=== PATIENT | female | born 1990 | race Caucasian/White ===

== ENCOUNTER 2019-11-23 20:04 | Emergency (ER) | payer MEDICAID ==
[~2019-11-23] VITALS: Ht 165.1 cm; Wt 61.0 kg
[2019-11-23 20:14] VITALS: BP 169/120
== END 2019-11-24 00:21 | disposition home or self-care (01) ==
LOC: ER 20:05
DX: S60.450A Superficial foreign body of right index finger, initial encounter (principal); W22.8XXA Striking against or struck by other objects, initial encounter; Y93.89 Activity, other specified; Y92.89 Other specified places as the place of occurrence of the external cause; Y99.8 Other external cause status
CPT/HCPCS: 10120; 99285

== ENCOUNTER 2020-01-28 15:25 | Emergency (ER) | payer MEDICAID ==
[~2020-01-28] VITALS: Ht 165.1 cm; Wt 63.0 kg
[2020-01-28] MEDS ORDERED: ondansetron 4mg rapidly disintigrating tab PO ONE (16:35)
[2020-01-28] MEDS ORDERED: HYDROcodone/acetaminophen 5mg/325mg tablet PO ONE (16:35)
[2020-01-28] MEDS ORDERED: HYDR-4383 PO (16:42)
[2020-01-28] MEDS ORDERED: ONDA4TAB6 PO (16:42)
[2020-01-28 17:01] VITALS: BP 162/116
== END 2020-01-28 16:55 | disposition home or self-care (01) ==
LOC: ER 15:25
DX: S92.511A Displaced fracture of proximal phalanx of right lesser toe(s), initial encounter for closed fracture (principal); F12.90 Cannabis use, unspecified, uncomplicated; Z79.899 Other long term (current) drug therapy; W22.8XXA Striking against or struck by other objects, initial encounter; Y93.89 Activity, other specified; Y92.89 Other specified places as the place of occurrence of the external cause; Y99.8 Other external cause status
CPT/HCPCS: 29130; 73660; 99283

== ENCOUNTER 2021-09-15 23:07 | Emergency (ER) | payer MEDICAID ==
[~2021-09-15] VITALS: Ht 165.1 cm; Wt 61.0 kg
[~2021-09-15 23:07] MED LIST: HYDR-4383 PO; ONDA4TAB6 PO
[2021-09-15 23:12] VITALS: BP 183/118
[2021-09-15] MEDS ORDERED: proparacaine 0.5% ophthalmic drops 15ml EACHEYE ONE (23:45)
[2021-09-16] MEDS ORDERED: erythromycin ophthalmic ointment 1gm tube EACHEYE ONE (00:10)
[2021-09-16] MEDS ORDERED: acetaminophen 325mg tablet PO ONE (00:10)
[2021-09-16] MEDS ORDERED: ibuprofen tablet 400 MG TABLET PO ONE (00:10)
[2021-09-16] MEDS ORDERED: SULF1TAB48 PO (00:13)
[2021-09-16] MEDS ORDERED: CEFD300C3 PO (00:13)
[2021-09-16] MEDS ORDERED: sulfamethoxazole/trimethoprim DS (800/160mg) tablet PO ONE (00:15)
== END 2021-09-16 00:45 | disposition home or self-care (01) ==
LOC: ER 23:08
DX: S05.02XA Injury of conjunctiva and corneal abrasion without foreign body, left eye, initial encounter (principal); X58.XXXA Exposure to other specified factors, initial encounter; Y93.89 Activity, other specified; Y92.89 Other specified places as the place of occurrence of the external cause; Y99.8 Other external cause status
CPT/HCPCS: 99284

== ENCOUNTER 2021-12-31 11:31 | Emergency (ER) | payer MEDICAID ==
[~2021-12-31] VITALS: Ht 165.1 cm; Wt 65.9 kg
[2021-12-31] MEDS ORDERED: ketorolac trometh. 30mg/ml inj. IM ONE (14:35)
[2021-12-31] MEDS ORDERED: TETanus/Pertussis (Acell)/Diphther VAC/PF (Tdap-Adult) 0.5ml syringe IMVAC ONE (15:30)
[2021-12-31] MEDS ORDERED: LIDOcaine 1% W/epiNEPHrine 1:200,000 10ml vial IJ ONE (15:30)
[2021-12-31] MEDS ORDERED: LIDOCAINE 2% w/EPI 1:100:000 30mL injection MDV**cath lab 1 only SQ ONE (15:35)
[2021-12-31] MEDS ORDERED: CEPH-585 PO (16:39)
[2021-12-31] MEDS ORDERED: IBUP-1986 PO (16:39)
[2021-12-31] MEDS ORDERED: cephalexin 250mg capsule PO ONE (16:40)
[2021-12-31 16:56] VITALS: BP 150/106
== END 2021-12-31 16:57 | disposition home or self-care (01) ==
LOC: ER 11:31
DX: L02.511 Cutaneous abscess of right hand (principal); L03.011 Cellulitis of right finger; F17.200 Nicotine dependence, unspecified, uncomplicated; F12.90 Cannabis use, unspecified, uncomplicated; Z79.2 Long term (current) use of antibiotics; Z79.899 Other long term (current) drug therapy
CPT/HCPCS: 26010; 73140; 87070; 87077; 87186; 93005; 96372; 99285; J1885; 90715; 99283

== ENCOUNTER 2022-01-02 14:46 | Emergency (ER) | payer MEDICAID ==
[~2022-01-02] VITALS: Ht 167.6 cm; Wt 70.0 kg
[~2022-01-02 14:46] MED LIST changes: +CEPH-585 PO; +IBUP-1986 PO
[2022-01-02 14:56] VITALS: BP 203/142
== END 2022-01-02 20:24 | disposition left against medical advice (07) ==
LOC: ER 14:46
DX: Z48.00 Encounter for change or removal of nonsurgical wound dressing (principal); Z53.21 Procedure and treatment not carried out due to patient leaving prior to being seen by health care provider

== ENCOUNTER 2022-05-06 08:01 | Emergency (ER) | payer MEDICAID ==
[~2022-05-06] VITALS: Ht 165.1 cm; Wt 65.9 kg
[2022-05-06 08:05] VITALS: BP 174/126
[2022-05-06] MEDS ORDERED: HYDROcodone/acetaminophen 10/325mg tab PO ONE (10:45)
[2022-05-06] MEDS ORDERED: sulfamethoxazole/trimethoprim DS (800/160mg) tablet PO ONE (10:45)
[2022-05-06] MEDS ORDERED: SULF1TAB49 PO (11:50)
[2022-05-06] MEDS ORDERED: HYDR-3972 PO (11:50)
== END 2022-05-06 12:21 | disposition home or self-care (01) ==
LOC: ER 08:02
DX: S62.001A Unspecified fracture of navicular [scaphoid] bone of right wrist, initial encounter for closed fracture (principal); I10 Essential (primary) hypertension; Z79.2 Long term (current) use of antibiotics; X58.XXXA Exposure to other specified factors, initial encounter; Y93.89 Activity, other specified; Y92.89 Other specified places as the place of occurrence of the external cause; Y99.8 Other external cause status
CPT/HCPCS: 29125; 73110; 99283; L3908

== ENCOUNTER 2023-01-13 00:39 | Emergency (ER) | payer MEDICAID ==
[~2023-01-13] VITALS: Ht 165.1 cm; Wt 65.9 kg
[~2023-01-13 00:39] MED LIST changes: -CEPH-585 PO
[2023-01-13 00:48] VITALS: BP 181/136
--- NOTE | 2023-01-13 00:58 | NUR ---
Spoke with MD regarding patient, no orders at this time.
[2023-01-13] MEDS ORDERED: LISI1TAB49 PO (02:08)
== END 2023-01-13 03:44 | disposition home or self-care (01) ==
LOC: ER 00:40
DX: I10 Essential (primary) hypertension (principal); R42 Dizziness and giddiness; F12.90 Cannabis use, unspecified, uncomplicated; Z79.899 Other long term (current) drug therapy
CPT/HCPCS: 99283

== ENCOUNTER 2023-02-01 22:35 | Emergency (ER) | payer MEDICAID ==
[~2023-02-01] VITALS: Ht 165.1 cm; Wt 65.9 kg
[~2023-02-01 22:35] MED LIST changes: +LISI1TAB49 PO
[2023-02-01 22:58] VITALS: BP 135/98
[2023-02-02] MEDS ORDERED: LIDOcaine 1% 30ml preserv. free vial IJ ONE (01:35)
[2023-02-02] MEDS ORDERED: HYDROcodone/acetaminophen 10/325mg tab PO ONE (02:35)
[2023-02-02] MEDS ORDERED: sulfamethoxazole/trimethoprim DS (800/160mg) tablet PO ONE (02:35)
[2023-02-02] MEDS ORDERED: ketorolac trometh inj. 60 MG/2 ML VIAL IM ONE (02:35)
[2023-02-02] MEDS ORDERED: SULF1TAB49 PO (02:37)
[2023-02-02] MEDS ORDERED: TRAM50TA2 PO (02:37)
[2023-02-02] MEDS ORDERED: IBUP-1985 PO (02:37)
--- NOTE | 2023-02-02 11:38 | NUR ---
PRESCRIPTIONS CALLED IN TO [facility] ON [address] FOR BACTRIM-DS ONE TAB TWICE DAILY X 10 DAYS AND IBUPROFEN 600 MG ONE TAB EVERY 8 HOURS NEEDED FOR PAIN. PATIENT IS AWARE OF RX AND WILL PICK MEDS UP TODAY.
[2023-02-03] MEDS ORDERED: ONDA4TAB12 PO (18:17)
[2023-02-03] MEDS ORDERED: HYDR-3973 PO (18:17)
[2023-02-03] MEDS ORDERED: LISI1TAB49 PO (18:17)
== END 2023-02-02 02:51 | disposition home or self-care (01) ==
LOC: ER 22:36
DX: N75.0 Cyst of Bartholin's gland (principal); I10 Essential (primary) hypertension; F12.90 Cannabis use, unspecified, uncomplicated
CPT/HCPCS: 56420; 87070; 87075; 96372; 99284; J1885; 87077; 87186; A6449

== ENCOUNTER 2023-02-03 13:06 | Emergency (ER) | payer MEDICAID ==
[~2023-02-03] VITALS: Ht 165.1 cm; Wt 65.9 kg
[~2023-02-03 13:06] MED LIST changes: -HYDR-4383 PO; +IBUP-1985 PO; +SULF1TAB49 PO; +TRAM50TA2 PO
[2023-02-03] MEDS ORDERED: ondansetron 4mg rapidly disintigrating tab PO ONE (18:10)
[2023-02-03] MEDS ORDERED: morphine 4 MG/ML inj SYRINge IM ONE (18:10)
[2023-02-03] MEDS ORDERED: ONDA4TAB12 PO (18:17)
[2023-02-03] MEDS ORDERED: HYDR-3973 PO (18:17)
[2023-02-03] MEDS ORDERED: LISI1TAB49 PO (18:17)
[2023-02-04 17:47] VITALS: BP 167/94
== END 2023-02-03 18:28 | disposition home or self-care (01) ==
LOC: ER 13:06
DX: N75.0 Cyst of Bartholin's gland (principal); I10 Essential (primary) hypertension; F12.10 Cannabis abuse, uncomplicated; Z79.899 Other long term (current) drug therapy
CPT/HCPCS: 96372; 99283; J2270